=== PATIENT | male | born 1935 | race Caucasian/White ===

== ENCOUNTER 2019-11-17 18:40 | Emergency (ER) | payer OTHER ==
[~2019-11-17] VITALS: Ht 170.2 cm; Wt 77.1 kg
[2019-11-17 18:43] VITALS: BP_SYST 128
[2019-11-17] MEDS ORDERED: CALC0.258 PO (19:06)
[2019-11-17] MEDS ORDERED: FURO-149 PO (19:06)
[2019-11-17] MEDS ORDERED: METO25TA3 PO (19:06)
[2019-11-17] MEDS ORDERED: CAT.1 PO (19:06)
[2019-11-17] MEDS ORDERED: LISI-209 PO (19:06)
[2019-11-17 19:20] LABS: BASOPHILS # (AUTO) 0.1 K/uL (0.0-0.2); EOSINOPHILS # (AUTO) 0.1 K/uL (0.0-0.4); EOSINOPHILS % (AUTO) 1.2 % (0.0-4.0); HEMATOCRIT 36.7 % (36-54); HEMOGLOBIN 12.7 g/dL (14.0-18.0); LYMPHOCYTES # (AUTO) 0.8 K/uL (1.0-5.5); LYMPHOCYTES % (AUTO) 11.2 % (20.5-51.5); MEAN CORPUSCULAR HEMOGLOBIN 33 pg (27-31); MEAN CORPUSCULAR HGB CONC 35 % (32-36); MEAN CORPUSCULAR VOLUME 96 fL (79.0-98.0); MONOCYTES # (AUTO) 0.4 K/uL (0.0-1.0); MONOCYTES % (AUTO) 5.1 % (1.7-9.3); NEUTROPHILS % (AUTO) 81.5 % (40.0-70.0); PLATELET COUNT (AUTO) 255 K/uL (130-430); RED BLOOD CELL COUNT(AUTO) 3.84 MIL/uL (4.2-6.2); RED CELL DISTRIBUTION WIDTH 13.1 % (9.0-15.0); WHITE BLOOD COUNT (AUTO) 7.3 K/uL (4.8-10.8)
[2019-11-17 19:43] LABS: ANION GAP 12 (5-15); CALCIUM 9.1 mg/dL (8.4-11.0); CHLORIDE 103 mmol/L (98-107); CREATININE 2.59 mg/dL (0.55-1.30); GLUCOSE 125 mg/dL (70-99); POTASSIUM 4.8 mmol/L (3.5-5.1); SODIUM SERUM 136 mmol/L (136-145); UREA NITROGEN, BLOOD 92 mg/dL (8-21)
[2019-11-17 19:46] LABS: ALANINE AMINOTRANSFERASE 17 U/L (12-78); ALBUMIN 3.5 g/dL (3.4-4.8); ASPARTATE AMINOTRANSFERASE 16 U/L (10-37); TOTAL BILIRUBIN 0.4 mg/dL (0.0-1.0)
[2019-11-17 19:47] LABS: PROTHROMBIN TIME 10.3 SECS (9.5-12.5)
[2019-11-17 23:50] VITALS: BP_SYST 124
== END 2019-11-17 23:50 | disposition short-term general hospital (02) ==
LOC: SED 18:40
DX: R53.1 Weakness (principal); N28.9 Disorder of kidney and ureter, unspecified; I10 Essential (primary) hypertension; E11.9 Type 2 diabetes mellitus without complications; Z79.899 Other long term (current) drug therapy
CPT/HCPCS: 36415; 71045; 80053; 83605; 83880; 84484; 85025; 85610-TC; 85730-TC; 87040-TC; 93005; 99285

== ENCOUNTER 2021-01-21 11:53 | Inpatient (IN) | payer OTHER, MEDICAID, SELFPAY ==
[~2021-01-21] VITALS: Ht 167.6 cm; Wt 60.8 kg
[~2021-01-21 11:53] MED LIST: CALC0.258 PO; CAT.1 PO; FURO-149 PO; LISI-209 PO; METO25TA3 PO
[2021-01-21 12:00] VITALS: BP_SYST 135
--- NOTE | 2021-01-21 12:05 | NUR ---
Patient to ER bed 2 to gown for evaluation. Side rails up. Report given to EDDIE DIAZ.
--- NOTE | 2021-01-21 12:20 | NUR ---
PT BIBA FROM HOME FOR INCREASED WEAKNESS AND FALLING. PER GOKUL PT FELL LAST NIGHT AND TONIGHT IN THE HOME. TODAY WAS FROM COUCH LEVEL WHILE TRYING TO GET UP.PT HAS HAD UNSTEADY GAIT AND USES A WALKER AT BASELINE. 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 PT HAS BEEN MORE CONFUSED, INCONTINENT. BRUISING TO BOTH ARMS AND LEGS. PT PRESENTS TO ER DISHEVELED, LONG DIRTY FINGER NAILS. DECREASED EATING. STACYKAYLENE BECKY IS CONCERNED HE MAY NOT BE ABLE TO LIVE ALONE ANY MORE, SHE CHECKS ON HIM REGULARLY. PT WEARS EMERGENCY ALERT NECKLACE. PT IS AOX3, V/S STABLE
[2021-01-21] MEDS ORDERED: NACL 0.9% 1,000 ML IV ONE (12:45)
--- NOTE | 2021-01-21 12:45 | NUR ---
ER DR. HOLGUIN AT THE BEDSIDE EXAMINING PT
--- NOTE | 2021-01-21 13:00 | NUR ---
RT AT THE BEDSIDE FOR ABG
--- NOTE | 2021-01-21 13:50 | NUR ---
Patient transported to radiology via GURNEY, accompanied by STAFF.
--- NOTE | 2021-01-21 14:03 | NUR ---
Returned from radiology, back to [facility].
[2021-01-21 14:11] LABS: BILIRUBIN,URINE 1+ (NEGATIVE); BLOOD, URINE 3+ (NEGATIVE); CLARITY/URINE CLEAR (CLEAR); COLOR,URINE YELLOW (YELLOW); GLUCOSE,URINE NEGATIVE (NEGATIVE); KETONES,URINE 3+ (NEGATIVE); LEUKOCYTE ESTERASE ,URINE NEGATIVE (NEGATIVE); NITRITE, URINE NEGATIVE (NEGATIVE); PROTEIN URINE 1+ (NEGATIVE); UROBILINOGEN,URINE 0.2 (0.2-1.0)
[2021-01-21 15:07] LABS: BACTERIA,URINE None Seen /HPF (None Seen); WBC,URINE 0-3 /HPF (0-3)
--- NOTE | 2021-01-21 15:45 | NUR ---
LAB AT THE BEDSIDE FOR BLOOD DRAW
[2021-01-21 16:09] LABS: BASOPHILS # (AUTO) 0.1 K/uL (0.0-0.2); BASOPHILS % (AUTO) 0.6 % (0.0-2.0); EOSINOPHILS % (AUTO) 0.2 % (0.0-4.0); HEMATOCRIT 43.5 % (36-54); HEMOGLOBIN 14.7 g/dL (14.0-18.0); LYMPHOCYTES # (AUTO) 0.6 K/uL (1.0-5.5); LYMPHOCYTES % (AUTO) 5.9 % (20.5-51.5); MEAN CORPUSCULAR HEMOGLOBIN 32 pg (27-31); MEAN CORPUSCULAR HGB CONC 34 % (32-36); MEAN CORPUSCULAR VOLUME 94 fL (79.0-98.0); MONOCYTES # (AUTO) 0.6 K/uL (0.0-1.0); MONOCYTES % (AUTO) 5.5 % (1.7-9.3); NEUTROPHILS # (AUTO) 9.6 K/uL (1.8-7.7); NEUTROPHILS % (AUTO) 87.8 % (40.0-70.0); PLATELET COUNT (AUTO) 221 K/uL (130-430); RED BLOOD CELL COUNT(AUTO) 4.61 MIL/uL (4.2-6.2); RED CELL DISTRIBUTION WIDTH 14.8 % (9.0-15.0)
[2021-01-21 16:41] LABS: ANION GAP 18 (5-15); CALCIUM 9.3 mg/dL (8.4-11.0); CHLORIDE 99 mmol/L (98-107); CREATININE 1.43 mg/dL (0.55-1.30); GLUCOSE 81 mg/dL (70-99); POTASSIUM 4.9 mmol/L (3.5-5.1); SODIUM SERUM 133 mmol/L (136-145); UREA NITROGEN, BLOOD 24 mg/dL (8-21)
[2021-01-21 16:44] LABS: ALANINE AMINOTRANSFERASE 32 U/L (12-78); ALBUMIN 3.5 g/dL (3.4-4.8); ASPARTATE AMINOTRANSFERASE 75 U/L (10-37); TOTAL BILIRUBIN 1.2 mg/dL (0.0-1.0)
--- NOTE | 2021-01-21 18:00 | NUR ---
DINNER PROVIDED TO PT
--- NOTE | 2021-01-21 18:13 | NUR ---
STATUS UPDATE GIVEN TO GOKUL PENA .
--- NOTE | 2021-01-21 18:51 | NUR ---
PT SLEEPING IN GURNEY, EASILY ARROUSABLE, EVEN UNLABORED RESPIRATIONS, V/S STABLE
--- NOTE | 2021-01-21 19:23 | NUR ---
REPORT GIVEN TO JOE DAVEY
--- NOTE | 2021-01-21 21:23 | NUR ---
Introduced self to patient, positioned for comfort. Continue to monitor. Patient resting quietly. No acute distress noted. Vital signs within normal range. Patient in no acute distress.
--- NOTE | 2021-01-21 22:29 | NUR ---
Patient will be admitted to care of [facility]. Admitted to medsurg unit. Will go to room 130A. Belongings list completed. Complete and up to date summary report printed. SBAR report to be given at bedside with opportunity for questions.
[2021-01-22 00:30] VITALS: BP_SYST 133
[2021-01-22 01:30] VITALS: BP_SYST 111
--- NOTE | 2021-01-22 03:00 | NUR ---
PT IN BED AWAKE. PT APPEARS RESTLESS BUT HAS NOT ATTEMPTED TO GET OUT OF BED. PT EDUCATED TO STAY IN BED AND USE CALL LIGHT IF HE NEEDS ASSISTANCE. WILL CONTINUE TO MONITOR.
--- NOTE | 2021-01-22 05:04 | NUR ---
CONSULTATION PAGED/CALLED Reason for Consultation: NEAR SYNCOPE Person Who was Notified: MOY Consulting Physician: NICHOL Transformer Stock Clerk Specialty: Ordering Physician: LICHA
--- NOTE | 2021-01-22 05:59 | NUR ---
CONSULTATION PAGED/CALLED Reason for Consultation: NEAR SYNCOPE Person Who was Notified: DR KC. TEXT Consulting Physician: Jing KC Financial Services Professional Specialty: Ordering Physician: LICHA
[2021-01-22 07:30] LABS: BASOPHILS # (AUTO) 0.1 K/uL (0.0-0.2); BASOPHILS % (AUTO) 0.8 % (0.0-2.0); EOSINOPHILS # (AUTO) 0.1 K/uL (0.0-0.4); HEMATOCRIT 39.9 % (36-54); HEMOGLOBIN 13.5 g/dL (14.0-18.0); LYMPHOCYTES # (AUTO) 0.6 K/uL (1.0-5.5); LYMPHOCYTES % (AUTO) 6.6 % (20.5-51.5); MEAN CORPUSCULAR HEMOGLOBIN 32 pg (27-31); MEAN CORPUSCULAR HGB CONC 34 % (32-36); MEAN CORPUSCULAR VOLUME 94 fL (79.0-98.0); MONOCYTES # (AUTO) 0.6 K/uL (0.0-1.0); MONOCYTES % (AUTO) 5.8 % (1.7-9.3); NEUTROPHILS # (AUTO) 8.5 K/uL (1.8-7.7); NEUTROPHILS % (AUTO) 85.8 % (40.0-70.0); PLATELET COUNT (AUTO) 209 K/uL (130-430); RED BLOOD CELL COUNT(AUTO) 4.23 MIL/uL (4.2-6.2); RED CELL DISTRIBUTION WIDTH 14.8 % (9.0-15.0); WHITE BLOOD COUNT (AUTO) 9.9 K/uL (4.8-10.8)
--- NOTE | 2021-01-22 07:31 | NUR ---
ENDORSED CARE TO DAY SHIFT NURSE. PT DID NOT ATTEMPT TO GET OUT OF BED
[2021-01-22 08:00] VITALS: BP_SYST 134
[2021-01-22 08:57] LABS: ALANINE AMINOTRANSFERASE 28 U/L (12-78); ALBUMIN 3.1 g/dL (3.4-4.8); ANION GAP 15 (5-15); ASPARTATE AMINOTRANSFERASE 61 U/L (10-37); BILIRUBIN,DIRECT 0.4 mg/dL (0.0-0.3); CALCIUM 8.7 mg/dL (8.4-11.0); CHLORIDE 102 mmol/L (98-107); CREATININE 1.46 mg/dL (0.55-1.30); GLUCOSE 61 mg/dL (70-99); POTASSIUM 4.7 mmol/L (3.5-5.1); SODIUM SERUM 135 mmol/L (136-145); TOTAL BILIRUBIN 1.1 mg/dL (0.0-1.0); UREA NITROGEN, BLOOD 26 mg/dL (8-21)
[2021-01-22] MEDS: lisinopriL 5 MG TABLET PO SCH (09:34)
[2021-01-22] MEDS: calcitrioL 0.25 MCG CAPSULE PO SCH (09:35)
[2021-01-22] MEDS: METOPROLOL SUCCINATE 25 MG TAB.SR.24H (TOPROL XL) PO SCH (09:36)
--- NOTE | 2021-01-22 11:00 | NUR ---
PT ATTEMPTED TO GET OUT OF BED. PT REORIENTED TO ROOM. PT CLEANED AND REPOSITIONED. BED ALARM ON. WILL CONTINUE TO MONITOR. Addendum: 01/23/21 at 0507 by Rubio Kebede RN ON 01/22 @6549
[2021-01-22 12:00] VITALS: BP_SYST 122
[2021-01-22 16:58] VITALS: BP_SYST 130
[2021-01-22] MEDS ORDERED: TAMSULOSIN HCL 0.4 MG CAP PO SCH (18:00)
--- NOTE | 2021-01-22 19:15 | NUR ---
RECEIVED BEDSIDE REPORT. PT IN BED RESTING. RR EVEN AND UNLABORED. PT CLEANED AND REPOSITIONED. BED RAILS UPS. BED ALARM ON. CALL LIGHT WITHIN REACH. PT EDUCATED NOT TO ATTEMPT TO GET OUT OF BED. BED ALARM ON. WILL CONTINUE TO MONITOR.
[2021-01-22 20:21] VITALS: BP_SYST 118
[2021-01-23] VITALS: BP_SYST 130
--- NOTE | 2021-01-23 07:27 | NUR ---
ENDORSED CARE TO DAY RN. PT SLEPT THROUGH THE NIGHT. NO COMPLAINTS
[2021-01-23 08:00] VITALS: BP_SYST 101
[2021-01-23] MEDS: METOPROLOL SUCCINATE 25 MG TAB.SR.24H (TOPROL XL) PO SCH (09:00)
[2021-01-23] MEDS: calcitrioL 0.25 MCG CAPSULE PO SCH (09:05)
[2021-01-23] MEDS: lisinopriL 5 MG TABLET PO SCH (09:23)
[2021-01-23 09:44] LABS: ALANINE AMINOTRANSFERASE 26 U/L (12-78); ALBUMIN 3.1 g/dL (3.4-4.8); ANION GAP 12 (5-15); ASPARTATE AMINOTRANSFERASE 47 U/L (10-37); CALCIUM 8.4 mg/dL (8.4-11.0); CHLORIDE 99 mmol/L (98-107); CHOLESTEROL 181 mg/dL (<200); CREATININE 1.63 mg/dL (0.55-1.30); GLUCOSE 96 mg/dL (70-99); HDL CHOLESTEROL 50 mg/dL (>45); LDL CHOLESTEROL 110 mg/dL (<100); SODIUM SERUM 133 mmol/L (136-145); THYROID STIMULATING HORMONE 1.82 uIu/mL (0.34-4.82); TOTAL BILIRUBIN 0.8 mg/dL (0.0-1.0); TRIGLYCERIDES 104 mg/dL (30-150); UREA NITROGEN, BLOOD 24 mg/dL (8-21)
--- NOTE | 2021-01-23 10:16 | NUR ---
CM: Faxed snf referral to [facility], the pt is accepted per Carlos, given room 7C. The pt can transfer after get approval from [facility]. >> Notified the discharge to snf and requesting auth from [facility] Gretchen is an oncall cm today, she will call back. Addendum: 01/23/21 at 1218 by Nash Stewart RN Communication with Asuncion/Jessica: LEVI discussed the dcp to snf yesterday, given contracted snf of choice per [facility]. Asuncion requested #1 [facility], #2 [facility] and #3 [facility]. LEVI verified [facility] and [facility] are not in insurance contracted list. Asuncion agreed with [facility] /[facility]. She will speak with Carlos for care management detail.
--- NOTE | 2021-01-23 10:35 | NUR ---
patient cleaned and linens changed for incontinence of urine. tolerated well.
--- NOTE | 2021-01-23 10:38 | NUR ---
Nutrition Update Salvatore Scale 16 noted. Pt admitted for ALOC. Diet: mechanical soft BMI: 21.6 kg/m2 RD to follow per nutrition care standards.
[2021-01-23 12:00] VITALS: BP_SYST 105
--- NOTE | 2021-01-23 12:07 | NUR ---
SNF: The pt is accepted to room 5 at [facility] ([facility]) address [address] [place] [address], [place] [address], tel # [phone]. >> Per Bindu/anna Godinez /Lupillo nieto , given snf auth # [id number]. [facility] auth # [id number]. >> Booked [facility] # [id number] for 3 pm pickup per JOE Horne ' s request. She will notify Asuncion/brisa the transfer time.
--- NOTE | 2021-01-23 12:18 | NUR ---
Disposition 03
--- NOTE | 2021-01-23 12:42 | NUR ---
PAGED DR HURT FOR DISCHARGE ORDERS AND DISCHARGE MEDICATION FINALIZATION. AWAITING CALL BACK
[2021-01-23 13:43] VITALS: BP_SYST 109
[2021-01-23] MEDS ORDERED: TAMS-11 PO (13:56)
--- NOTE | 2021-01-23 14:17 | NUR ---
FOLLOWED UP THE NEURO CONSULT FOR UNSTEADY GAIT WRITTEN BY ATTENDING MD DR HURT ON THE Jan. SPOKE TO DR SCHRADER, COUNSELOR AIDE FOR DR KC. HE WAS IN THE HOSPITAL AND WILL SEE PT NOW.
[2021-01-23] MEDS ORDERED: OSELTAMIVIR PHOSPHATE 6 MG/1 ML, 60 ML SUSP PO SCH (14:30)
[2021-01-23] MEDS ORDERED: TAM45SUS PO (14:31)
[2021-01-23] MEDS ORDERED: OSEL6SUS4 PO (14:31)
[2021-01-23] MEDS ORDERED: TAMS0.4C96 PO (14:31)
--- NOTE | 2021-01-23 15:55 | NUR ---
PATIENT DISCHARGED, PICKED UP BY GRAY Medina WITH [facility], IV REMOVED, TELE BOX REMOVED, DISCHARGE PACKET REVIEWED EDUCATED AND SIGNED, PROVIDED EDUCATION TO BENJAMIN REAL THE PATIENTS NIECE AND SHE GAVE VERBAL CONSENT FOR THE TRANSFER TO [facility], MED REC COMPLETED WITH DR HURT, GAVE FULL REPORT TO DARBY THE RN AT [facility] OVER THE PHONE, EDUCATED ON MEDICATIONS PATIENT WILL CONTINUE ON BUT SHORTLY BEFORE PHYSICIAN SURGEON DR HURT ORDERED PATIENT TO START TAMIFLU WELL, ENDORSED TO GRAY TO ENDORSE TO DARBY TO HAVE PATIENT START TAMIFLU, IN ADDITION REPRINTED MED LIST AND PROVIDED IN THE TRANSFER PACKET, PICTURES TAKEN OF R AND LEFT LOWER EXTREMITIES AND PLACED IN CHART, ALL BELONGINGS WITH BENJAMIN THE NIECE, TRANSFERRED IN [facility] IS AWARE PATIENT IS INFLUENZA B POSITIVE AND STATED THEY WILL ISOLATION PATIENT UPON ARRIVAL, GRAY ALSO MADE AWARE OF INFLUENZA B POSITIVE, PATIENT STABLE FOR TRANSFER.
[2021-01-24 03:06] LABS: FOLATE (FOLIC ACID) 7.5 ng/mL (>3.0)
== END 2021-01-23 15:55 | DRG 194 ==
LOC: SED 11:53 → STU 21:11
PROVIDERS: ADMIT Internal Medicine; ATTEND Internal Medicine
DX: J10.1 Influenza due to other identified influenza virus with other respiratory manifestations (principal); E44.1 Mild protein-calorie malnutrition; N18.4 Chronic kidney disease, stage 4 (severe); G93.49 Other encephalopathy; E86.0 Dehydration; I12.9 Hypertensive chronic kidney disease with stage 1 through stage 4 chronic kidney disease, or unspecified chronic kidney disease; I25.10 Atherosclerotic heart disease of native coronary artery without angina pectoris; I35.0 Nonrheumatic aortic (valve) stenosis; F17.210 Nicotine dependence, cigarettes, uncomplicated; H54.61 Unqualified visual loss, right eye, normal vision left eye; E11.22 Type 2 diabetes mellitus with diabetic chronic kidney disease; Z20.822 Contact with and (suspected) exposure to COVID-19; J44.9 Chronic obstructive pulmonary disease, unspecified; R27.0 Ataxia, unspecified; M19.90 Unspecified osteoarthritis, unspecified site; F03.90 Unspecified dementia, unspecified severity, without behavioral disturbance, psychotic disturbance, mood disturbance, and anxiety; L40.9 Psoriasis, unspecified; Z86.73 Personal history of transient ischemic attack (TIA), and cerebral infarction without residual deficits; Z79.899 Other long term (current) drug therapy; Z68.21 Body mass index [BMI] 21.0-21.9, adult
CPT/HCPCS: 36415; 36600; 70450-TC; 71045; 76376; 76770; 80048; 80053; 80061; 80076; 81000; 82607; 82746; 82803-TC; 82962; 83605; 83880; 84443; 84484; 85025; 86710; 87040-TC; 87086; 93005; 93306; 93880; 96360; 97163-GP; 99285; G0378; G9035